=== PATIENT | male | born 1990 | race Two or more races ===

== ENCOUNTER 2016-03-26 00:36 | Emergency (ER) | payer SELFPAY ==
[~2016-03-26] VITALS: Ht 175.3 cm; Wt 72.6 kg
[~2016-03-26 00:36] MED LIST: UNOBMED
[2016-03-26 02:29] VITALS: BP 126/77
[2016-03-26 04:00] VITALS: BP 115/69
[2016-03-26 05:43] VITALS: BP 103/66
[2016-03-26 06:15] VITALS: BP 103/66
--- NOTE | 2016-03-28 07:22 | Emergency Room Report ---
History of Present Illness General Chief Complaint: Substance Abuse Source: Patient Present Illness HPI 26-year-old male presents to ED for evaluation. Per EMS patient found lying on sidewalk tonight. bystanders called 911. Patient appears to be intoxicated. No signs of trauma. Upon arrival patient is breathing, protecting airway. However unresponsive. Patient is unable to provide any additional history at this time. No reported fevers or chills. Reported chest pain or shortness of breath. No other reported aggravating relieving factors. No other associated symptoms Allergies: Coded Allergies: UNABLE TO ASSESS (Unverified , 03/26/16) Patient History Past Medical History: none Past Surgical History: none Pertinent Family History: none Social History: Denies: alcohol use, drug use, smoking Immunizations: UTD Reviewed Nursing Documentation: PMH: Agreed, PSxH: Agreed Nursing Documentation-PMH Past Medical History Deferred: Patient Unconscious Review of Systems All Other Systems: negative except mentioned in HPI Physical Exam Vital Signs Date Time Temp Pulse Resp B/P Pulse Ox O2 Delivery O2 Flow Rate FiO2 03/26/16 00:26 78 14 108/68 98 Room Air 03/26/16 02:29 96.8 Sp02 EP Interpretation: reviewed, normal General Appearance: lethargic, thin Head: normocephalic Eyes: bilateral eye PERRL, bilateral eye normal inspection ENT: normal ENT inspection Neck: normal inspection Respiratory: chest non-tender, lungs clear, normal breath sounds, speaking full sentences Cardiovascular #1: regular rate, rhythm, no edema Gastrointestinal: normal bowel sounds, non tender, soft, non-distended, no guarding, no rebound Rectal: black stool Genitourinary: no CVA tenderness Musculoskeletal: back normal Neurologic: other - intoxicated Psychiatric: other - intoxicated Skin: normal inspection Lymphatic: normal inspection Medical Decision Making Diagnostic Impression: Primary Impression: Alcohol abuse ER Course Hospital Course 26-year-old M presents to ED with altered mental status. Differential diagnoses include: Psychosis, EtOH, drug abuse Clinical course patient placed on stretcher. On tablet tester. After initial history and physical ordered IV fluids, CT brain. CT brain shows no acute pathology patient allowed to sleep. Patient is now awake alert oriented x3, ambulating i. I feel this is a highly complex case requiring extensive working including EKG/Rhythm strip, Xray/CT/US, Blood/urine lab work, repeat exams while in ED, and administration of strong opiates/narcotics for pain control, admission to hospital or close patient follow up. Diagnosis -alcohol abuse Stable and discharged to home. Followup with PMD. Return to ED if symptoms recur or worsen CT/MRI/US Diagnostic Results CT/MRI/US Diagnostic Results : Imaging Test Ordered: CT head Impression no acute process Last Vital Signs Date Time Temp Pulse Resp B/P Pulse Ox O2 Delivery O2 Flow Rate FiO2 03/26/16 06:15 97.1 87 15 103/66 96 Room Air Status: improved Disposition: HOME, SELF-CARE Condition: Stable Referrals: NOT CHOSEN IPA/,REFERRING (PCP) Patient Instructions: Alcohol Intoxication, [id number] PB MUNGUIA M.D. Mar 28, 2016 07:22
--- NOTE | 2016-03-28 09:11 | Diagnostic Imaging Report ---
Indication: Altered mental status Technique: Contiguous 5 mm thick transaxial imaging of the head obtained in a Siemens Sensation [address] scanner. Soft tissue and bone windows generated. Total Dose length Product (DLP): [address] Dose Index Volume (CTDIvol): 70.38 mGy Comparison: none Findings: The size and configuration of the cortical sulci, basal cisterns, and ventricles are within normal limits for age. There is no mass effect, midline shift, or edema identified. There is no evidence of acute hemorrhage or abnormal intra-axial or extra-axial fluid collections. The bones and soft tissues are unremarkable. Impression: No mass effect, edema or acute bleed. The CT scanner at [facility] is accredited by the [employer] and the scans are performed using protocols designed to limit radiation exposure to as low as reasonably achievable to attain images of sufficient resolution adequate for diagnostic evaluation.
== END 2016-03-26 06:15 | disposition home or self-care (01) ==
LOC: EDBD 00:36 → EMR 05:55
DX: F10.10 Alcohol abuse, uncomplicated (principal)
CPT/HCPCS: 70450; 96360